=== PATIENT | male | born 1975 | race Two or more races ===

== ENCOUNTER 2024-11-27 23:40 | Emergency (ER) | payer BC, SELFPAY ==
[2024-11-27 23:59] VITALS: BP 155/94; PULSE 83; RESP 17; TEMP 36.9; O2SAT 96
--- NOTE | 2024-11-28 00:15 | XR_ITS ---
Examination: CT abdomen with intravenous contrast CT pelvis with intravenous contrast 2-D coronal reconstructions 2-D sagittal reconstructions Date and time of exam:November 28, 2024 0213 hours INDICATIONS: Onset abdominal pain today. CTDI: vol (mGy) 11.6 DLP: (mGycm) 767 Technique: Multiple axial sections of the abdomen and pelvis have been obtained. 64 slice high-resolution scanner used. 3 mm axial sections have been obtained, post intravenous injection 60 cc [id number] 2-D sagittal, coronal reconstructions obtained. Low dose protocols were performed. One or more of the following dose reduction techniques were used; automated exposure control, adjustment of the mA and/or KV according to patient size, use of iterative reconstruction technique. Findings: Fatty infiltration throughout the liver no focal liver or splenic lesions No gallstones No pancreatic or adrenal mass Minimal left hydronephrosis secondary to 3 mm distal left ureteral calculus Aorta normal size Normal appendix Colonic diverticulosis Bladder intact Transverse prostate dimension 5 cm IMPRESSION: Normal appendix Minimal left hydronephrosis secondary to 3 mm distal left ureteral calculus
[2024-11-28] MEDS: KETOROLAC INJ 30 MG/ML VIAL IVP (00:46)
[2024-11-28 01:39] LABS: Basophils # (Auto) 0.1 Thou/mm3 (0.0-0.2); Basophils % (Auto) 1 % (0-2.5); Eosinophils # (Auto) 0.1 Thou/mm3 (0.0-0.5); Eosinophils % (Auto) 1 % (0-10); Hematocrit 46.3 % (41.0-53.0); Hemoglobin 16.3 g/dL (13.5-16.0); Immature Granulocytes % (Auto) 0 % (0-0); Immature Granulocytes Auto 0.03 Thou/mm3 (0.00-0.00); Lymphocytes # (Auto) 1.4 Thou/mm3 (1.0-4.8); Lymphocytes % (Auto) 12 % (10-50); Mean Corpuscular HGB Conc 35.2 g/dl (31.0-37.0); Mean Corpuscular Hemoglobin 31.5 pg (25.0-35.0); Mean Corpuscular Volume 89 fL (80-100); Monocytes # (Auto) 0.5 Thou/mm3 (0.0-0.8); Monocytes % (Auto) 4 % (0-12); Neutrophils # (Auto) 9.9 Thou/mm3 (1.8-7.7); Neutrophils % (Auto) 82 % (37-80); Nucleated Red Blood Cell % 0 /100 WBC (0); Platelet Count 343 Thou/mm3 (140-440); Red Blood Count 5.18 Miln/mm3 (4.50-5.90)
[2024-11-28 01:51] LABS: Alanine Aminotransferase 49 U/L (10-49); Albumin, Serum 4.8 gm/dL (3.5-5.0); Albumin/Globulin Ratio 1.8 (1.2-2.2); Alkaline Phosphatase 60 U/L (46-116); Anion Gap 10 (7-16); Aspartate Amino Transferase 30 U/L (0-34); BUN/Creatinine Ratio 12 Ratio (12-20); Bilirubin,Total 0.7 mg/dL (0.3-1.2); Blood Urea Nitrogen 13 mg/dL (9-23); Calcium 10.1 mg/dL (8.3-10.6); Calcium (Corrected) 10.1 mg/dL (8.5-10.1); Carbon Dioxide 26.6 mMol/L (20.0-31.0); Chloride 107 mMol/L (98-107); Creatinine (Component) 1.1 mg/dL (0.6-1.3); Globulin 2.6 gm/dL (2.3-3.5); Glucose 119 mg/dL (74-106); Lipase 28 U/L (12-53); Osmolality,Calculated 287 (275-295); Potassium 3.7 mMol/L (3.4-5.1); Sodium 144 mMol/L (136-145); Total Protein 7.4 gm/dL (5.7-8.2); eGFR > 60 See Note
--- NOTE | 2024-11-28 03:02 | PRELIM_ITS ---
CT scan of the abdomen and pelvis with intravenous contrast (axial sections with sagittal and coronal reformats) November 28, 2024 at 0213 hours Clinical History: Right side abdominal pain. Comparison: No prior study is available for comparison. Findings: There is a 3 mm obstructing calculus in the left terminal ureter (axial image 215/316) causing mild hydroureteronephrosis with mild periureteric/perinephric fat stranding. Fatty infiltration of the liver is noted. The gallbladder, pancreas, spleen, right kidney and adrenals are unremarkable. No evidence of bowel obstruction. A moderate amount of fecal material is present in the colon. There are multiple colonic diverticula without evidence of diverticulitis. The appendix is within normal limits (coronal image [id number]). There is no mesenteric or retroperitoneal adenopathy. There is mild prostatomegaly. The urinary bladder is partially distended and shows mild wall thickening; possibility of cystitis or bladder outlet obstruction cannot be excluded. There is no free fluid or free air. Degenerative changes are identified in the spine. Bibasilar dependent atelectasis is present. Please note that evaluation of bowel loops is limited due to absence of oral contrast. Impression: 1. No evidence of appendicitis. 2. A 3 mm obstructing calculus in the left terminal ureter causing mild hydroureteronephrosis as described. 3. Mild prostatomegaly. 4. Partially distended urinary bladder with mild wall thickening; possibility of cystitis or bladder outlet obstruction cannot be excluded. 5. Other findings as described above. Suggest clinical correlation and follow up accordingly. Report Electronically Signed By: Gerald Boss 11/28/2024 3:02:31 AM [EST]
[2024-11-28 03:45] LABS: Collection Type, Urine Clean Catch
[2024-11-28 04:15] LABS: Amphetamine/Methamp Scrn,U Negative (Negative); Barbiturate Screen,Urine Negative (Negative); Benzodiazepines Screen,Urine Negative (Negative); Benzoylecgonine Screen, Ur Negative (Negative); Fentanyl Screen,Urine Negative (Negative); Opiate Screen,Urine Negative (Negative); THC Screen,Urine Negative (Negative)
[2024-11-28 04:31] LABS: Bilirubin,Urine Negative (Negative); Blood,Urine 3+ (Negative); Clarity,Urine Clear (Clear/Hazy); Color,Urine Yellow (Lt Yel-Yel); Glucose, Urine Negative (Negative); Ketones,Urine 3+ (Negative); Leukocyte Esterase,Urine Negative (Negative); Nitrite,Urine Negative (Negative); Protein,Urine 1+ (Neg - Trace); RBC,Urine 129 /hpf (0-3); Squamous Epithelial Cell,Urine 7 /hpf (0-5); Urobilinogen,Urine Negative mg/dL (0.0-1.0); WBC,Urine 68 /hpf (0-5)
[2024-11-28 04:33] LABS: Culture Indicated,Urine Yes
[2024-11-28] MEDS: TAMSULOSIN HCL 0.4 MG CAPSULE PO (04:58)
[2024-11-28] MEDS: cefTRIAXone/D5w 1gm IV premix 1 GM/50 ML BAG IV (04:58)
[2024-11-28 05:23] VITALS: BP 135/67; PULSE 78; RESP 18; TEMP 36.6; O2SAT 99
--- NOTE | 2024-11-28 05:33 | EDNOTE_ITS ---
ED Abdominal Pain RME/HPI General Chief Complaint: Abdominal Pain Stated complaint: Severe Abdominal Pain Time seen by provider: 11/28/24 00:15 Arrival date/time: 11/27/24 23:40 48M with history of HTN presents to ED with 2 days of L flank pain and possibly dysuria. Limitations: no limitations Related Data Home Medications ?Medication ?Instructions ?Recorded ?Confirmed lisinopril 20 mg tablet (Zestril) 20 mg PO QDAY #0 tab s 08/17/13 10/31/21 ibuprofen 200 mg tablet 200 mg PO Q6HR PRN PAIN #0 t abs 12/23/15 10/31/21 Held on 10/31/21. Instructions: Resume on 11/01/21. Previous Rx's ?Medication ?Instructions ?Recorded acetaminophen 500 mg tablet 500 mg PO Q6HR PRN PAIN #3 0 tabs 12/23/15 (Tylenol Extra Strength) cefuroxime axetil 500 mg tablet 500 mg PO BID 7 days # 14 tabs 11/28/24 naproxen 500 mg tablet 500 mg PO BID PRN pain #30 t abs 11/28/24 tamsulosin 0.4 mg capsule (Flomax) 0.4 mg PO QDAY #20 caps 11/28/24 Allergies Allergy/AdvReac Type Severity Reaction Status Date / Time No Known Allergies Allergy Unverified 10/31/21 12:56 Review of Systems Review of Systems Systems Reviewed: All systems reviewed, normal except as documented Constitutional Constitutional: Reports system reviewed and no additional complaints, except as documented, Denies fever(s) and Denies headache(s) ENT Ears, Nose, Mouth, and Throat: Denies disequilibrium and Denies headache(s) Cardiovascular Cardiovascular: Reports system reviewed and no additional complaints, except as documented, Denies chest pain and Denies dyspnea Respiratory Respiratory: Reports system reviewed and no additional complaints, except as documented, Denies cough and Denies dyspnea Gastrointestinal Gastrointestinal: Reports system reviewed and no additional complaints, except as documented, Denies abdominal pain, Denies nausea and Denies vomiting Genitourinary Genitourinary: Reports as per HPI, Reports difficulty urinating and Reports flank pain Neurologic Neurologic: Reports system reviewed and no additional complaints, except as documented, Denies confusion, Denies disequilibrium and Denies headache(s) Psychiatric Psychiatric: Denies confusion Past Medical History Past Medical History NEUROLOGIC: Negative Seizures CARDIAC: Positive Hypertension; Negative Cardiac Disorders or Congestive Heart Failure RESPIRATORY: Negative Chronic Obstructive Pulmonary Disease (COPD), Asthma or Sleep Apnea GENITOURINARY: Negative Renal Disease ENDOCRINE: Negative Diabetes Mellitus Type 1 or Diabetes Mellitus Type 2 HEMATOLOGIC: Negative Sickle Cell Disease OTHER HISTORY: Negative Blood Transfusions, Blood Transfusion Reaction or Anesthesia Reactions Social History SMOKING STATUS: Never smoker ED Exam General Limitations: Present no limitations General appearance: Present alert and in no apparent distress Head Head exam: Present atraumatic Eye Eye exam: Present normal appearance, PERRL and EOMI ENT ENT exam: Present normal exam, normal oropharynx and mucous membranes moist Neck Neck exam: Present normal inspection, full ROM and trachea midline Chest Chest inspection: Present normal inspection and symmetric chest wall rise Respiratory Respiratory exam: Present normal lung sounds bilaterally Cardiovascular Cardiovascular exam: Present regular rate, normal rhythm and normal heart sounds Abdominal Exam Abdominal exam: Present soft and normal bowel sounds Extremities Exam Extremities exam: Present normal inspection and full ROM Back Exam Back exam: Present normal inspection and full ROM Neurological Exam Neurological exam: Present alert, oriented X3 and CN II-XII intact Psychiatric Psychiatric exam: Present normal affect and normal mood Skin Skin exam: Present warm, dry, intact and normal color Course Quality Measures none Orders Category Date Time Status CT Screening NOW Care 11/28/24 00:16 Completed Insert IV NOW Care 11/28/24 00:[address] abdomen pelvis w con Stat Exams 11/28/24 00:15 Taken CBC Stat Lab 11/28/24 01:10 Completed CMP [Comprehensive Metabolic Panel] Stat Lab 11/28/24 01:10 Completed Drug Screen,Urine Stat Lab 11/28/24 03:01 Completed Lipase Stat Lab 11/28/24 01:10 Completed Urinalysis, C/S if Indicated Stat Lab 11/28/24 03:10 Completed Urine Culture Stat Lab 11/28/24 03:10 Received Ketorolac Inj [Toradol Inj] Med 11/28/24 00:15 Discontinued 30 mg IVP X1 ONE Tamsulosin HCl [Flomax] Med 11/28/24 04:40 Discontinued 0.4 mg PO X1 ONE cefTRIAXone/D5w 1gm IV premix [Rocephin/D5w 1gm IV Med 11/28/24 04:40 Discontinued premix] 1 gm in 50 ml IV X1 Vital Signs Vital signs: Vital Signs Temperature 98.4 F 11/27/24 23:59 Pulse Rate 83 04/24/25 23:59 Respiratory Rate 17 11/27/24 23:59 Blood Pressure 155/94 H 11/27/24 23:59 Pulse Oximetry (%) 96 11/27/24 23:59 Oxygen Delivery Method Room Air 11/27/24 23:59 O2 at 96% on RA and WNLs Abdominal Pain MDM MDM Narrative MDM Narrative:: 48M with history of HTN presents to ED with 2 days of L flank pain and possibly dysuria. Physical exam reveals no flank tenderness. Patient is afebrile, alert, but appears to be in pain. CT reveals L 3mm kidney stone. Mild leukocytosis. CMP unremarkable. UA with RBCs and WBCs. Pain improved with meds. Will give ABX given possible dysuria and pyuria. Patient data External records reviewed:: [facility] previous records Clinical information provided by:: patient Social determinants that could affect healthcare access:: none Patient has the following chronic illnesses:: HTN How is presenting disease/condition affected by chronic disease/condition?: uneffected by Evaluation data The following diagnostics were reviewed and interpreted by me:: lab results and radiology exam(s) Lab and/or radiology exams considered but not ordered:: ordered Interpretation Summary: above Medications / Prescriptions Medications or Prescriptions considered but not ordered:: ordered Medication administrations:: Medication Administration History Discontinued Medications Ceftriaxone Sodium/Dextrose (Rocephin/D5w 1gm Iv Premix) 1 gm in 50 mls @ 100 mls/hr IV X1 ONE Stop: 11/28/24 05:09 Last Admin: 11/28/24 04:58 Dose: 100 mls/hr Documented By: RAYNE Ketorolac Tromethamine (Ketorolac Inj 30 Mg/Ml Vial) 30 mg IVP X1 ONE Stop: 11/28/24 00:16 Last Admin: 11/28/24 00:46 Dose: 30 mg Documented By: RAYNE Tamsulosin HCl (Tamsulosin Hcl 0.4 Mg Capsule) 0.4 mg PO X1 ONE Stop: 11/28/24 04:41 Last Admin: 11/28/24 04:58 Dose: 0.4 mg Documented By: RAYNE above Consultations Consultation(s) initiated? (list below): No Diagnosis Differential diagnosis abdominal pain: abdominal pain, acute appendicitis, calculus of kidney, constipation, diverticulitis, gastroenteritis, pancreatitis, small bowel obstruction and other (UTI) Most likely diagnosis given after review of the tests above:: kidney stone and UTI Admission Indicated Admission indicated?: not indicated Admission Request Was there a request for admission?: No Disposition Plan Disposition Plan: Discharge Discharge Attestation Discharge Attestation: The patient and all family members were given an opportunity to ask questions and understood the discharge instructions. Discharge instructions specifically effects, indications for sooner follow up or return to the emergency department, and the expected course of current diagnosis. Patient condition: Stable Discharge Plan Plan Patient Disposition: HOME (Self Care) Prescriptions/Referrals Prescriptions/Med Rec: New cefuroxime axetil 500 mg tablet 500 mg PO BID 7 Days Qty: 14 0RF tamsulosin [Flomax] 0.4 mg capsule 0.4 mg PO QDAY Qty: 20 0RF naproxen 500 mg tablet 500 mg PO BID PRN (Reason: pain) Qty: 30 0RF No Action lisinopril [Zestril] 20 MG tablet 20 mg PO QDAY Qty: 0 ibuprofen 200 MG tablet 200 mg PO Q6HR PRN (Reason: PAIN) Qty: 0 acetaminophen [Tylenol Extra Strength] 500 MG tablet 500 mg PO Q6HR PRN (Reason: PAIN) Qty: 30 0RF Referrals: Jose Hernandez MD [Primary Care Provider] - In 1 week Problem List Clinical Impression: Kidney stone, UTI (urinary tract infection) Patient/Caregiver Discharge Instructions Education Materials: ED Bladder Infection, Male (Adult), ED Kidney Stone w/ Colic Additional Instructions: Please follow-up with PCP within 24-48 hours and return immediately if symptoms worsen. Print Language: Frisian Stand Alone Forms: Patient Portal Info Letter MARIANNA/SONNY Supervising Physician MARIANNA/SONNY Supervising Physician: Dr. Mathis
== END 2024-11-28 05:24 | disposition home or self-care (01) ==
PROVIDERS: Physician Assistant; Emergency Provider Emergency Medicine; PCP Family Medicine
DX: N20.0 Calculus of kidney (principal); N39.0 Urinary tract infection, site not specified; I10 Essential (primary) hypertension
CPT/HCPCS: 36415; 74177; 80053; 80307; 81001; 83690; 85025; 87086; 99285; A4649; J0696; J1885; Q9967; A9270